=== PATIENT | male | born 1960 | race African-American/Black ===

== ENCOUNTER 2017-01-19 09:02 | Emergency (ER) | payer OTHER ==
--- NOTE | 2017-01-19 09:39 | ER Document Report ---
ED Extremity Problem, Lower - General Chief Complaint: Leg Pain Stated Complaint: RIGHT LEG PAIN Time Seen by Provider: 01/19/17 09:29 Notes: 56 yo male c/o right leg pain x 3 weeks. pt works for a moving company. was carrying a piece of furniture up the stairs. the furniture slipped, he braced himself and supported the furniture so it didnt fall. anterior leg pain started later that day. pt reports that the furniture did not hit his leg. he has continued to work. walks without difficulty, but when he stops to rest, he feels the pain. pt denies any bruising, swelling or deformity TRAVEL OUTSIDE OF THE [place] IN LAST 30 DAYS: No - HPI Patient complains to provider of: Pain Where: Work Onset/Duration: Gradual, Persistent Recent injury: Possibly Associated symptoms: denies: Chest pain, Fever, Hurts to breath, Rapid heart rate, Short of breath Exacerbated by: Movement, Walking Relieved by: Rest - Related Data Allergies/Adverse Reactions: No Known Allergies Allergy (Verified 01/19/17 09:06) Past Medical History - General Information source: Patient - Social History Smoking Status: Current Every Day Smoker Chew tobacco use (# tins/day): No Frequency of alcohol use: Occasional Drug Abuse: None Lives with: Family Family History: None, Reviewed & Not Pertinent Patient has suicidal ideation: No Patient has homicidal ideation: No - Medical History Medical History: Negative Endocrine Medical History: Denies: Hx Diabetes Mellitus Type 2 Renal/ Medical History: Denies: Hx Peritoneal Dialysis Past Surgical History: Reports: Hx Tonsillectomy - Immunizations Hx Diphtheria, Pertussis, Tetanus Vaccination: Yes Review of Systems - Review of Systems Constitutional: No symptoms reported EENT: No symptoms reported Cardiovascular: No symptoms reported Respiratory: No symptoms reported Gastrointestinal: No symptoms reported Genitourinary: No symptoms reported Male Genitourinary: No symptoms reported Musculoskeletal: See HPI Skin: No symptoms reported Hematologic/Lymphatic: No symptoms reported Neurological/Psychological: No symptoms reported Physical Exam - Vital signs Vitals: Temp Pulse Resp BP Pulse Ox 97.9 F 51 L 20 179/83 H 99 01/19/17 09:11 01/19/17 09:11 01/19/17 09:11 01/19/17 09:11 01/19/17 09:11 Interpretation: Normal - General General appearance: Appears well, Alert - HEENT Head: Normocephalic, Atraumatic Eyes: Normal Pupils: PERRL - Respiratory Respiratory status: No respiratory distress Chest status: Nontender Breath sounds: Normal Chest palpation: Normal - Cardiovascular Rhythm: Regular Heart sounds: Normal auscultation Murmur: No - Abdominal Inspection: Normal Distension: No distension Bowel sounds: Normal Tenderness: Nontender Organomegaly: No organomegaly - Back Back: Normal, Nontender - Extremities General upper extremity: Normal inspection, Nontender, Normal color, Normal ROM , Normal temperature General lower extremity: Normal inspection, Normal color, Normal ROM, Normal temperature, Normal weight bearing. No: Alvina's sign Hip: Nontender Thigh: Tender - mild tenderness right sartorious and quadricep muscles. Knee: Normal - Neurological Neuro grossly intact: Yes Cognition: Normal Orientation: AAOx4 [place] Coma Scale Eye Opening: Spontaneous [place] Coma Scale Verbal: Oriented [place] Coma Scale Motor: Obeys Commands [place] Coma Scale Total: 15 Speech: Normal Motor strength normal: LUE, RUE, LLE, RLE Sensory: Normal - Psychological Associated symptoms: Normal affect, Normal mood - Skin Skin Temperature: Warm Skin Moisture: Dry Skin Color: Normal Course - Re-evaluation Re-evalutation: 01/19/17 09:47 no bony tenderness. no xray indicated today. H&P c/w muscle inflammation from the physical exertion. no functional limitations, no vascular compromise. low suspicion of DVT, compartment syndrome, fracture 01/19/17 09:51 BP noted to be elevated. pt denies hx/o HTN. denies JIMÉNEZ, dizziness, chest pain , shortness of breath. no neurologic s/s. no s/s hypertensive crisis. elevated reading discussed with pt. encouraged to follow up with primary care to further evaluate blood pressure. pt agreeable and stable for discharge - Vital Signs Vital signs: Temp Pulse Resp BP Pulse Ox 97.9 F 51 L 20 179/83 H 99 01/19/17 09:11 01/19/17 09:11 01/19/17 09:11 01/19/17 09:11 01/19/17 09:11 Discharge - Discharge Clinical Impression: Right leg pain Condition: Stable Disposition: HOME, SELF-CARE Instructions: Ibuprofen (General) ([facility]), Muscle Relaxers ([facility]), Muscle Strain ( [facility]), Warm Packs ([facility]) Additional Instructions: You have strained the muscles in your leg Take the medications as prescribed apply moist heat to sore areas follow up with your primary care if pain persists Prescriptions: Ibuprofen [Motrin 800 Mg Tablet] 800 mg PO Q6H #20 tablet Methocarbamol [Robaxin 500 Mg Tablet] 1,000 mg PO Q6 #30 tablet Forms: Return to Work
[2017-01-19 09:53] VITALS: BP 155/90
== END 2017-01-19 10:00 | disposition home or self-care (01) ==
LOC: ER 09:02
DX: M79.604 Pain in right leg (principal); X50.0XXA Overexertion from strenuous movement or load, initial encounter; F17.200 Nicotine dependence, unspecified, uncomplicated
CPT/HCPCS: 99283

== ENCOUNTER 2017-06-13 15:29 | Emergency (ER) | payer SELFPAY ==
[2017-06-13] MEDS ORDERED: DEXAMETHASONE SOD PHOS INJ 10 MG/1 ML VIAL IM ONE (16:19)
[2017-06-13] MEDS ORDERED: KETOROLAC TROMETHAMINE INJ/PF 30 MG/1 ML SDV IM ONE (16:19)
--- NOTE | 2017-06-13 16:27 | ER Document Report ---
HPI - HPI Pain Level: 4 Notes: Patient is a 57-year-old male who presents to the ED complaining of right lateral leg and posterior buttock pain intermittently 5 months. Patient states that he was previously evaluated for the same pain in the past. Patient states that when he sits in a car or on a hard seat he notices a tingling and achy pain running down his posterior buttock and into his lateral right leg stopping at his knee. Patient states that he currently has no pain right now. Patient states that he has still been ambulatory without any discomfort or difficulties. He has been eating and drinking without difficulties. He is urinating normally and having normal bowel movements. Denies any previous injections or surgeries to his lower back. Patient does admit to smoking but denies IV drug use. Denies any drug allergies. Denies any previous history of spinal abscess. He has not noticed any edema or swelling of his legs. Denies prolonged immobilization, recent surgery/trauma, cancer history, hormone use, previous DVT/PE. Denies any headache, fever, neck pain, URI, sore throat, chest pain, palpitations, syncope, cough, shortness of breath, wheeze, dyspnea, abdominal pain, nausea/vomiting/diarrhea, urinary retention, dysuria, hematuria , loss of control of bowel or bladder, saddle anesthesia, muscle paralysis/ weakness, or rash. - ROS Systems Reviewed and Negative: Yes All other systems reviewed and negative - REPRODUCTIVE Reproductive: DENIES: : Past Medical History - Social History Smoking Status: Current Every Day Smoker Family History: None, Reviewed & Not Pertinent Endocrine Medical History: Denies: Hx Diabetes Mellitus Type 2 Renal/ Medical History: Denies: Hx Peritoneal Dialysis Past Surgical History: Reports: Hx Tonsillectomy - Immunizations Hx Diphtheria, Pertussis, Tetanus Vaccination: Yes Vertical Provider Document - CONSTITUTIONAL Agree With Documented VS: Yes Notes: PHYSICAL EXAMINATION: GENERAL: Well-appearing, well-nourished and in no acute distress. LUNGS: Breath sounds clear to auscultation bilaterally and equal. No wheezes rales or rhonchi. HEART: Regular rate and rhythm without murmurs, rubs, gallops. ABDOMEN: Soft, nontender, nondistended abdomen. No guarding, no rebound. No masses appreciated. Normal bowel sounds present. No CVA tenderness bilaterally. No pulsatile mass Musculoskeletal: LE's b/l: FROM to passive/active. Strength 5+/5. No deficits noted. No bony tenderness of extremities. Alvina neg b/l. Back: FROM to passive/active. Strength 5+/5. No vertebral point tenderness, stepoffs, or deformities. No other bony tenderness, erythema, swelling, or ecchymosis. SLR negative b/l. No SI jt tenderness. No foot drop. + lipoma palpated to lower back on the right side. Pt ambulatory w/o any limp or discomfort noted. Extremities: No cyanosis, clubbing, or edema b/l. Peripheral pulses 2+. Capillary refill less than 2 seconds. NEUROLOGICAL: Normal speech, normal gait. Normal sensory, motor exams. Reflexes 2+ b/l. PSYCH: Normal mood, normal affect. SKIN: Warm, Dry, normal turgor, no rashes or lesions noted. - INFECTION CONTROL TRAVEL OUTSIDE OF THE [place] IN LAST 30 DAYS: No Course - Re-evaluation Re-evalutation: 06/13/17 16:27 Patient is an afebrile, well-hydrated, 57-year-old male who presents to the ED with right posterior buttock and lateral right leg pain, suspect nerve etiology based on H&P today. Vitals are acceptable. PE is otherwise unremarkable for any neurovascular compress, obvious tendon/ligament rupture, obvious fracture/ dislocation, septic joint, DVT. No imaging warranted at this time based on H& P. Patient is completely asymptomatic and has had these symptoms intermittently over the last 5 months. Patient noted increase in symptoms primarily when he is sitting on a hard surface. Toradol and Decadron given IM today. I will send him home with naproxen. Conservative measures otherwise for symptoms. Recheck with your PCM in 3-5 days. Consider consult orthopedic/ physical therapy. Return to the ED with any worsening/concerning symptoms otherwise as reviewed discharge. Patient is in agreement. - Vital Signs Vital signs: Temp Pulse Resp BP Pulse Ox 98.6 F 91 18 129/71 H 96 06/13/17 16:05 06/13/17 16:05 06/13/17 16:05 06/13/17 16:05 06/13/17 16:05 Discharge - Discharge Clinical Impression: Right leg pain, Sciatic leg pain Condition: Stable Disposition: HOME, SELF-CARE Instructions: Sciatica ([facility]) Additional Instructions: Rest, Ice, Compression, Elevation Tylenol/ibuprofen as needed Light stretches daily Strength exercises as able Moist heat and massage may help F/u with your PCP in 3-5 days for a recheck Consider consult(s) with Orthopedics/physical therapy for ongoing/worsening symptoms Return to the ED with any worsening symptoms and/or development of fever, headache, changes in behavior/mentation/vision/speech, chest pain, palpitations , syncope, shortness of breath, trouble breathing, abdominal pain, n/v/d, blood in stool/urine, loss of control of bowel/bladder, urinary retention, muscle weakness/paralysis, saddle anesthesia, numbness/tingling, or other worsening symptoms that are concerning to you. Prescriptions: Naproxen 500 mg PO BID PRN #30 tablet PRN Reason: Forms: Elevated Blood Pressure, Smoking Cessation Education Referrals: [facility] [Provider Group] - Follow up as needed
[2017-06-13 16:47] VITALS: BP 128/89
== END 2017-06-13 16:48 | disposition home or self-care (01) ==
LOC: ER 15:29
DX: M54.41 Lumbago with sciatica, right side (principal); M79.604 Pain in right leg; M79.1 Myalgia; F17.200 Nicotine dependence, unspecified, uncomplicated
CPT/HCPCS: 99283; 96372; J1885; J1100